=== PATIENT | female | born 1950 | race Caucasian/White ===

== ENCOUNTER 2018-08-06 07:30 | Emergency (ER) | payer OTHER ==
[~2018-08-06] VITALS: Ht 160 cm; Wt 63.5 kg
[2018-08-06] MEDS ORDERED: NORVASC10 MG (08:25)
[2018-08-06] MEDS ORDERED: LIPITOR40 MG (08:25)
== END 2018-08-06 12:28 | disposition home or self-care (01) ==
LOC: ER 07:30
DX: S22.31XA Fracture of one rib, right side, initial encounter for closed fracture (principal); W17.89XA Other fall from one level to another, initial encounter; Y93.84 Activity, sleeping; Y92.092 Bedroom in other non-institutional residence as the place of occurrence of the external cause; Y99.8 Other external cause status

== ENCOUNTER 2023-02-03 19:45 | Emergency (ER) | payer OTHER ==
[~2023-02-03] VITALS: Ht 167.6 cm; Wt 54.4 kg
[~2023-02-03 19:45] MED LIST: LIPITOR40 MG; NORVASC10 MG
[2023-02-03] MEDS ORDERED: LODOSYN25 MG PO (20:18)
[2023-02-03] MEDS ORDERED: CRESTOR20 MG PO (20:18)
== END 2023-02-04 00:11 | disposition home or self-care (01) ==
LOC: ER 19:45
DX: S00.93XA Contusion of unspecified part of head, initial encounter (principal); S40.011A Contusion of right shoulder, initial encounter; W06.XXXA Fall from bed, initial encounter; Y93.89 Activity, other specified; Y92.013 Bedroom of single-family (private) house as the place of occurrence of the external cause; Y99.9 Unspecified external cause status; M25.511 Pain in right shoulder